=== PATIENT | male | born 1960 | race Caucasian/White ===

== ENCOUNTER 2020-04-05 14:57 | Outpatient (CLI) | payer BC ==
--- NOTE | 2020-04-05 15:47 | ULT ---
EXAM: US Neck Soft Tissue PROVIDED CLINICAL HISTORY: Palpable abnormalities which are intermittently palpable involving the posterior lateral right neck a nd right facial soft tissues. COMPARISON: None FINDINGS: Imaging was performed in the region of patient's palpable abnormalities right facial soft tissues and right neck. There is an oval-shaped echogenic structure likely due to patient's submandibular gland on the right which is in the region of the palpable abnormality. This is overall symmetric compared to the contralateral left side. No mass or cystic lesion is seen in the region of palpable concern which is in the region of the submandibular gland. Limited sonographic evaluation of the posterior lateral right neck demonstrates hypoechoic structures with central areas of increased echogenicity demonstrating sonographic imaging characteristics most compatible with nonenlarged lymph nodes. No additional solid or cystic lesion is seen in this re gion. IMPRESSION: 1. No mass or cystic lesion is seen to correspond to patient's palpable abnormality involving the rig ht facial soft tissues. 2. Normal-appearing lymph nodes are seen in the region of the patient's palpable abnormality at the r ight posterior lateral neck soft tissues. 3. Depending on clinical concern, CT scan neck with IV contrast may be helpful for further evaluation
== END 2020-04-05 14:58 | disposition home or self-care (01) ==
LOC: SCSULT 14:57
PROVIDERS: ATTEND Student in an Organized Health Care Education/Training Program
DX: R22.1 Localized swelling, mass and lump, neck (principal)
CPT/HCPCS: 76536

== ENCOUNTER 2021-07-11 13:45 | Outpatient (CLI) | payer BC ==
[2021-07-11 23:23] LABS: SARS-CoV-2 PCR by NAA Not Detected (NotDetected)
== END 2021-07-11 13:46 | disposition home or self-care (01) ==
LOC: LABBT 13:45
PROVIDERS: ATTEND Student in an Organized Health Care Education/Training Program
DX: Z01.818 Encounter for other preprocedural examination (principal); J34.2 Deviated nasal septum; J34.3 Hypertrophy of nasal turbinates; J34.89 Other specified disorders of nose and nasal sinuses; R09.82 Postnasal drip; R09.81 Nasal congestion; Z20.822 Contact with and (suspected) exposure to COVID-19
CPT/HCPCS: 93005; 93010; U0003; U0005

== ENCOUNTER 2021-07-15 07:08 | Day surgery (SDC) | payer BC ==
[2021-07-09 11:39] VITALS: BMI 30.9
[2021-07-15] MEDS ORDERED: Oxymetazoline HCl 0.05% (30 ML BOT) ONE (08:21)
[2021-07-15] MEDS ORDERED: Lidocaine 1% w/Epinephrine 1:100K 20 ML VIAL ONE (10:14)
[2021-07-15] MEDS ORDERED: Bacitracin Zinc Ointment 30 gm TUBE ONE (10:14)
[2021-07-15] MEDS ORDERED: AFRIN NASAL MIST 15 ML BOT ONE (10:14)
[2021-07-15] MEDS ORDERED: Famotidine/PF 20 mg/2ml Vial ONE (10:16)
[2021-07-15] MEDS ORDERED: SUGAMMADEX SODIUM 200 MG/2 ML VIAL ONE (10:16)
[2021-07-15] MEDS ORDERED: Fentanyl 100 MCG/2 ML VIAL ONE ×2 (10:16→10:52)
[2021-07-15] MEDS ORDERED: Ondansetron PF 4 MG/2 ML Vial ONE (11:01)
[2021-07-15] MEDS ORDERED: ePHEDrine 50 MG/ML VIAL ONE (11:01)
[2021-07-15] MEDS ORDERED: PROPOFOL 200 MG/20 ML VIAL ONE (11:01)
[2021-07-15] MEDS ORDERED: Lidocaine 1% PF 5 ML VIAL ONE (11:01)
[2021-07-15] MEDS ORDERED: Rocuronium Bromide 10 MG/ML (10ML VIAL) ONE (11:01)
[2021-07-15] MEDS ORDERED: Dexamethasone 20 MG/5 ML VIAL ONE (11:01)
== END 2021-07-15 13:51 | disposition home or self-care (01) ==
LOC: SDC 07:08
PROVIDERS: ATTEND Student in an Organized Health Care Education/Training Program
PROC: 09TL7ZZ Resection of Nasal Turbinate, Via Natural or Artificial Opening (ICD-10-PCS; principal; 2021-07-15)
PROC: 09QK0ZZ Repair Nasal Mucosa and Soft Tissue, Open Approach (ICD-10-PCS; principal; 2021-07-15)
PROC: 09SM0ZZ Reposition Nasal Septum, Open Approach (ICD-10-PCS; principal; 2021-07-15)
DX: J34.2 Deviated nasal septum (principal); J34.3 Hypertrophy of nasal turbinates; J34.89 Other specified disorders of nose and nasal sinuses; I10 Essential (primary) hypertension; E78.5 Hyperlipidemia, unspecified; K21.9 Gastro-esophageal reflux disease without esophagitis; N40.0 Benign prostatic hyperplasia without lower urinary tract symptoms; Z86.16 Personal history of COVID-19; Z79.899 Other long term (current) drug therapy
CPT/HCPCS: J1100; J2405; J2704; J3010; J3490; S0028